=== PATIENT | male | born 1995 | race Caucasian/White ===

== ENCOUNTER 2020-12-04 22:16 | Emergency (ER) | payer BC ==
[~2020-12-04 22:16] MED LIST: MOTRIN800 MG PO
[2020-12-04] MEDS ORDERED: ROBAXIN-750750 MG PO (22:40)
[2020-12-04] MEDS ORDERED: NAPROSYN500 MG PO (22:40)
== END 2020-12-04 23:32 | disposition home or self-care (01) ==
LOC: ED 22:16
DX: S29.012A Strain of muscle and tendon of back wall of thorax, initial encounter (principal); V89.2XXA Person injured in unspecified motor-vehicle accident, traffic, initial encounter; Y93.89 Activity, other specified; Y92.89 Other specified places as the place of occurrence of the external cause; Y99.8 Other external cause status